=== PATIENT | female | born 1985 | race Caucasian/White ===

== ENCOUNTER → 2017-04-01 | Outpatient (CLI) | payer BC ==
[~2017-04-01] MED LIST: CYCL5TAB PO; NAPR-576 PO
== END ==
LOC: HPND 09:39
PROVIDERS: ATTEND Obstetrics & Gynecology
DX: O36.5920 Maternal care for other known or suspected poor fetal growth, second trimester, not applicable or unspecified (principal)
CPT/HCPCS: 76816

== ENCOUNTER → 2017-04-27 | Outpatient (CLI) | payer BC | LOC: HPND 09:41 | PROVIDERS: ATTEND Obstetrics & Gynecology | DX: O36.5930 Maternal care for other known or suspected poor fetal growth, third trimester, not applicable or unspecified (principal); Z3A.30 30 weeks gestation of pregnancy | CPT/HCPCS: 76816 ==

== ENCOUNTER 2017-06-26 03:06 | Inpatient (IN) | payer BC ==
[2017-06-26] VITALS (11 sets, daily range): BP systolic 94–130; BP diastolic 53–87; PULSE 70–112; RESP 17–18; TEMP 97.8–98.5; O2SAT 97–100
[~2017-06-26] VITALS: Ht 154.9 cm; Wt 59.9 kg
[2017-06-26] MEDS ORDERED: OXYTOCIN 30 UNITS-500ML PREMIX 500 ML ONE (03:20)
[2017-06-26] MEDS ORDERED: ACETAMINOPHEN 325 MG TAB PO PRN (03:45)
[2017-06-26] MEDS ORDERED: ALUMINUM/MAGNESIUM/SIMETH 30 ML CUP PO PRN (03:45)
[2017-06-26] MEDS ORDERED: SODIUM CHLORIDE 0.9% FLUSH 10 ML FLUSH IV FLUSH PRN (03:45)
[2017-06-26] MEDS ORDERED: ONDANSETRON HCL 4 MG/2 ML VIAL IV PUSH PRN (03:45)
[2017-06-26] MEDS ORDERED: OXYTOCIN 30 UNITS 500ML PREMIX IV ONE (03:45)
[2017-06-26] MEDS ORDERED: ZOLPIDEM TARTRATE 5 MG TAB PO PRN (03:45)
[2017-06-26] MEDS ORDERED: LIDOCAINE HCL 1% 50 ML VIAL I-DERMAL PRN (03:45)
[2017-06-26] MEDS ORDERED: ONDANSETRON ODT 4 MG TAB PO PRN (03:45)
[2017-06-26] MEDS ORDERED: NS 1000 ML IV PRN (03:45)
[2017-06-26] MEDS ORDERED: LIDOCAINE HCL 1% 50 ML VIAL INFIL PRN (03:45)
[2017-06-26] MEDS ORDERED: NS 500 ML BOLUS IV PRN (03:45)
[2017-06-26] MEDS ORDERED: WITCH HAZEL 50%/GLYCERIN 12.5% 40 PAD JAR TOPICAL PRN (03:45)
[2017-06-26] MEDS ORDERED: LACTATED RINGER'S 1000 ML BOLUS IV PRN (03:45)
[2017-06-26] MEDS ORDERED: CITRIC ACID-SODIUM CITRATE LIQ 30 ML UDC PO SCH (03:45)
[2017-06-26] MEDS ORDERED: OXYTOCIN 30 UNITS-500ML PREMIX 500 ML IV SCH (03:45)
[2017-06-26] MEDS ORDERED: oxyCODONE/ACETAMINOPHEN 5 MG/325 MG TAB PO PRN (03:45)
[2017-06-26] MEDS ORDERED: BENZOCAINE 20% TOPICAL SPRAY 60 ML CAN TOPICAL PRN (03:45)
[2017-06-26] MEDS ORDERED: LACTATED RINGER'S 1000 ML IV SCH (03:45)
[2017-06-26] MEDS ORDERED: MINERAL OIL 10 ML VIAL TOPICAL PRN (03:45)
[2017-06-26] MEDS ORDERED: DOCUSATE SODIUM 50 MG/SENNA 8.6 MG TAB PO PRN (03:45)
--- NOTE | 2017-06-26 03:52 | PD ---
HPI Chief Complaint ctx Travel History International Travel<30 Days: No Contact w/Intl Traveler<30Days: No Known Affected Area: No History of Present Illness HPI Patient is a 31-year-old 001, who presents with intrauterine at 39.3 weeks care was uncomplicated. The patient reports the onset of painful contractions at 7:30 PM last night. They increased in intensity and frequency during the night. The patient reports she was still able to rest however after her water broke at about 2-30 a.m., the contractions significantly increased in intensity and frequency. She reports the fluid was clear. She denies any vaginal bleeding. She reports good movement. Weeks Gestation: 39 Para: 1 : 2 History Past Medical History Medical History: Denies Significant Hx Obstetric History Obstetric History 001, full-term 1 Past Surgical History Surgical History: No Previous Surgery Family History Family History: Negative Social History Alcohol Use: No Tobacco Use: No Substance Abuse: No Allergies-Medications (Allergen,Severity, Reaction): Coded Allergies: No Known Allergies (Unverified Allergy, Unknown, 06/26/17) Home Meds Discontinued Scripts Cyclobenzaprine Hcl (Flexeril) 5 Mg Tab, 5 MG PO Q8HR Y for MUSCLE PAIN, #21 TAB Prov:Thuan Purvis MD 01/30/16 Naproxen (Naproxen) 500 Mg Tab, 500 MG PO Q12HR Y for PAIN, #30 TAB Prov:Thuan Purvis MD 01/30/16 Review of Systems Except as stated in HPI: all other systems reviewed are Neg Physical Exam Vital Signs Date Time Temp Pulse Resp B/P (MAP) Pulse Ox O2 Delivery O2 Flow Rate FiO2 06/26/17 03:43 112 124/79 (94) Narrative GENERAL: Well-nourished, well-developed patient. SKIN: Warm and dry. HEAD: Normocephalic and atraumatic. EYES: No scleral icterus. No injection or drainage. ENT: No nasal drainage noted. Mucous membranes pink. Airway patent. NECK: Supple, trachea midline. No JVD. CARDIOVASCULAR: Regular rate and rhythm without murmurs, gallops, or rubs. RESPIRATORY: Breath sounds equal bilaterally. No accessory muscle use. BREASTS: Deferred ABDOMEN/GI: Abdomen soft, non-tender, bowel sounds present, no rebound, no guarding Gravid GENITOURINARY: External Genitalia: intact and normal in appearance. Normal BUS. No vaginal or cervical masses noted. SVE was 7-8 cm dilated at the time of admission and the patient rapidly progressed to complete/complete EXTREMITIES: No cyanosis or edema. BACK: Nontender without obvious deformity. No CVA tenderness. NEUROLOGICAL: Awake and alert. Motor and sensory grossly within normal limits. Five out of 5 muscle strength in all muscle groups. Normal speech. Psychiatric: Grossly normal memory and affect Data Data Orders Orders Ob (2e) Additional Admit Info (06/26/17 03:16) Oxytocin 30 Units-500ml Premix (Pitocin (06/26/17 03:20) Lactated Ringer's 1000 Ml Inj (Lr 1000 M (06/26/17 03:45) Lactated Ringer's 1000 Ml Inj (Lr 1000 M (06/26/17 03:45) Sodium Chlorid 0.9% 500 Ml Inj (Ns 500 M (06/26/17 03:45) Sodium Chlor 0.9% 1000 Ml Inj (Ns 1000 M (06/26/17 03:45) Lidocaine 1% Inj (50 Ml) (Xylocaine 1% I (06/26/17 03:45) Citric Acid-Sodium Citrate Liq (Bicitra (06/26/17 03:45) Ondansetron Inj (Zofran Inj) (06/26/17 03:45) Fentanyl Inj (Fentanyl Inj) (06/26/17 03:45) Fentanyl Inj (Fentanyl Inj) (06/26/17 03:45) Oxytocin 30 Units-500ml Premix (Pitocin (06/26/17 03:45) Lidocaine 1% Inj (50 Ml) (Xylocaine 1% I (06/26/17 03:45) Light Mineral Oil (Muri-Lube Oil) (06/26/17 03:45) Vital Signs (Adult) .QSHIFT (06/26/17 03:45) Activity Oob Ad Maria Dolores (06/26/17 03:45) Ice / Cold Pack PRN (06/26/17 03:45) Discontinue Iv (06/26/17 03:45) Sitz Bath PRN (06/26/17 03:45) ^ Massage (06/26/17 03:45) ^ Rhogam (06/26/17 03:45) Urinary Catheter Management .PRN (06/26/17 03:45) Diet Regular Basic (06/26/17 Breakfast) Sodium Chloride 0.9% Flush (Ns Flush) (06/26/17 09:00) Sodium Chloride 0.9% Flush (Ns Flush) (06/26/17 03:45) Oxytocin 30 Units-500ml Premix (Pitocin (06/26/17 03:45) Acetaminophen (Tylenol) (06/26/17 03:45) Ibuprofen (Motrin) (06/26/17 03:45) Oxycodone-Acetamin 5-325 Mg (Percocet (06/26/17 03:45) Benzocaine 20% Top Spr (Americaine 20% T (06/26/17 03:45) Witch Franny-Glycerin Pad (Tucks Pads) (06/26/17 03:45) Docusate Sodium-Senna (Sandy-Colace) (06/26/17 03:45) Zolpidem (Ambien) (06/26/17 03:45) Zvzvyvu-Wrmae-Dhzoawe Inj (M-M-R Ii Inj) (06/26/17 16:00) Yaqu-Typ-Yywokq (Booster) Inj (Boostrix (06/26/17 16:00) Al-Mag Hy-Si 40-40-4 Mg/Ml Liq (Mag-Al P (06/26/17 03:45) Ondansetron Odt (Zofran Odt) (06/26/17 03:45) MDM Plan Assessment/plan: 1. IUP at 39 weeks 2. Active labor: Expected management 3. GBS negative 4. Dr. Cha was notified with patient went on to deliver precipitously Petty Morris MD Jun 26, 2017 03:52
--- NOTE | 2017-06-26 03:55 | PD.OB.DELI ---
Weeks gestation: 39 Gest age assessed date: Jun 26, 2017 Gest age assessed time: 03:53 Pt started active labor?: Yes Active labor start date: Jun 26, 2017 Active labor start time: 20:00 Medical induction of labor?: No Artificial rupture of membrane: No Anesthesia: None Episiotomy: None Vaginal Delivery: Normal Presentation: Occiput anterior Nuchal Cord: None Delayed cord clamping (45 sec): Yes : Male Delivery date: Jun 26, 2017 Delivery time: 03:26 One Minute : 9 Five Minute : 9 Weight: 6#10oz. Placenta: Spontaneous delivery Laceration: 1 deg (R periurethral, not bleeding, not repaired (patient declined and well approximated)) Estimated blood loss: 250 Additional Information The patient presented in active labor at 8-9/complete/-1 and proceeded to deliver precipitously. She commenced spontaneous maternal expulsive efforts and delivered the head atraumatically followed by atraumatic delivery of the anterior shoulder and remainder of the . The was vigorous at delivery and placed on the maternal abdomen. Cord clamping was delayed for 45 seconds at which point the cord was doubly clamped and cut. Cord blood was obtained for the nursery and the placenta delivered spontaneously. The placenta appeared to be intact. A small first-degree right periurethral laceration was noted. Dr. Rashid arrived and assumed care for the patient. The patient declined repair of the laceration and no bleeding was noted. EBL 250 cc. Apgars 9/9. Mother and are doing well Petty Morris MD Jun 26, 2017 03:55
[2017-06-26] MEDS: IBUPROFEN 800 MG TAB PO PRN ×3 (04:41→20:44)
[2017-06-26 05:21] LABS: BLOOD, URINE LARGE (NEG); COMMENT (UR) CULTURE INDICATED; CULTURE IF INDICATED CULTURE INDICATED; GLUCOSE,URINE NEG (NEG); KETONE, URINE NEG (NEG); NITRITE,URINE NEG (NEG); SQUAMOUS EPITHELIAL CELL URINE 1 /hpf (0-5); URINE COLOR DARK-RED (YELLW/STRAW)
[2017-06-26 05:22] LABS: AUTOMATED NEUTROPHIL # 7.3 TH/MM3 (1.8-7.7); BASOPHIL % 0.1 % (0.0-2.0); EOSINOPHIL # 0.1 TH/MM3 (0-0.4); HEMATOCRIT 30.1 % (35.0-46.0); HEMO FLAGS DIFF FINAL; LYMPH % 25.7 % (9.0-44.0); LYMPHOCYTE # 3.1 TH/MM3 (1.0-4.8); MEAN CELL VOLUME 78.5 FL (80.0-100.0); MEAN CORPUSCULAR HEMOGLOBIN 27.5 PG (27.0-34.0); MONO % 12.1 % (0.0-8.0); NEUT % 61.1 % (16.0-70.0); PLATELET COUNT 305 TH/MM3 (150-450); RED BLOOD COUNT 3.84 MIL/MM3 (4.00-5.30); RED CELL DISTRIBUTION WIDTH 14.7 % (11.6-17.2); WHITE BLOOD COUNT 11.9 TH/MM3 (4.0-11.0)
--- NOTE | 2017-06-26 05:35 | HHI.HP ---
History & Physical H&P Patient Name: Angelique Robbins Unit Number: [id number] Date of : 1985 Patient Status: Admitted Inpatient Attending Doctor: Maggy Rashid MD HPI HPI Chief Complaint ctx Travel History International Travel<30 Days: No Contact w/Intl Traveler<30Days: No Known Affected Area: No History of Present Illness HPI Patient is a 31-year-old 001, who presents with intrauterine at 39.3 weeks care was uncomplicated. The patient reports the onset of painful contractions at 7:30 PM last night. They increased in intensity and frequency during the night. The patient reports she was still able to rest however after her water broke at about 2-30 a.m., the contractions significantly increased in intensity and frequency. She reports the fluid was clear. She denies any vaginal bleeding. She reports good movement. Weeks Gestation: 39 Para: 1 : 2 History (Limited) History Past Medical History Medical History: Denies Significant Hx Obstetric History Obstetric History 001, full-term 1 Past Surgical History Surgical History: No Previous Surgery Family History Family History: Negative Social History Alcohol Use: No Tobacco Use: No Substance Abuse: No Allergies-Medications Allergies-Medications (Allergen,Severity, Reaction): Coded Allergies: No Known Allergies (Unverified Allergy, Unknown, 06/26/17) Home Meds Discontinued Scripts Cyclobenzaprine Hcl (Flexeril) 5 Mg Tab, 5 MG PO Q8HR Y for MUSCLE PAIN, #21 TAB Prov:Thuan Purvis MD 01/30/16 Naproxen (Naproxen) 500 Mg Tab, 500 MG PO Q12HR Y for PAIN, #30 TAB Prov:Thuan Purvis MD 01/30/16 ROS Review of Systems Except as stated in HPI: all other systems reviewed are Neg Physical Exam Physical Exam Vital Signs Date Time Temp Pulse Resp B/P (MAP) Pulse Ox O2 Delivery O2 Flow Rate FiO2 06/26/17 03:43 112 124/79 (94) Narrative GENERAL: Well-nourished, well-developed patient. SKIN: Warm and dry. HEAD: Normocephalic and atraumatic. EYES: No scleral icterus. No injection or drainage. ENT: No nasal drainage noted. Mucous membranes pink. Airway patent. NECK: Supple, trachea midline. No JVD. CARDIOVASCULAR: Regular rate and rhythm without murmurs, gallops, or rubs. RESPIRATORY: Breath sounds equal bilaterally. No accessory muscle use. BREASTS: Deferred ABDOMEN/GI: Abdomen soft, non-tender, bowel sounds present, no rebound, no guarding Gravid GENITOURINARY: External Genitalia: intact and normal in appearance. Normal BUS. No vaginal or cervical masses noted. SVE was 7-8 cm dilated at the time of admission and the patient rapidly progressed to complete/complete EXTREMITIES: No cyanosis or edema. BACK: Nontender without obvious deformity. No CVA tenderness. NEUROLOGICAL: Awake and alert. Motor and sensory grossly within normal limits. Five out of 5 muscle strength in all muscle groups. Normal speech. Psychiatric: Grossly normal memory and affect Data Data Data Orders Orders Ob (2e) Additional Admit Info (06/26/17 03:16) Oxytocin 30 Units-500ml Premix (Pitocin (06/26/17 03:20) Lactated Ringer's 1000 Ml Inj (Lr 1000 M (06/26/17 03:45) Lactated Ringer's 1000 Ml Inj (Lr 1000 M (06/26/17 03:45) Sodium Chlorid 0.9% 500 Ml Inj (Ns 500 M (06/26/17 03:45) Sodium Chlor 0.9% 1000 Ml Inj (Ns 1000 M (06/26/17 03:45) Lidocaine 1% Inj (50 Ml) (Xylocaine 1% I (06/26/17 03:45) Citric Acid-Sodium Citrate Liq (Bicitra (06/26/17 03:45) Ondansetron Inj (Zofran Inj) (06/26/17 03:45) Fentanyl Inj (Fentanyl Inj) (06/26/17 03:45) Fentanyl Inj (Fentanyl Inj) (06/26/17 03:45) Oxytocin 30 Units-500ml Premix (Pitocin (06/26/17 03:45) Lidocaine 1% Inj (50 Ml) (Xylocaine 1% I (06/26/17 03:45) Light Mineral Oil (Muri-Lube Oil) (06/26/17 03:45) Vital Signs (Adult) .QSHIFT (06/26/17 03:45) Activity Oob Ad Maria Dolores (06/26/17 03:45) Ice / Cold Pack PRN (06/26/17 03:45) Discontinue Iv (06/26/17 03:45) Sitz Bath PRN (06/26/17 03:45) ^ Massage (06/26/17 03:45) ^ Rhogam (06/26/17 03:45) Urinary Catheter Management .PRN (06/26/17 03:45) Diet Regular Basic (06/26/17 Breakfast) Sodium Chloride 0.9% Flush (Ns Flush) (06/26/17 09:00) Sodium Chloride 0.9% Flush (Ns Flush) (06/26/17 03:45) Oxytocin 30 Units-500ml Premix (Pitocin (06/26/17 03:45) Acetaminophen (Tylenol) (06/26/17 03:45) Ibuprofen (Motrin) (06/26/17 03:45) Oxycodone-Acetamin 5-325 Mg (Percocet (06/26/17 03:45) Benzocaine 20% Top Spr (Americaine 20% T (06/26/17 03:45) Witch Franny-Glycerin Pad (Tucks Pads) (06/26/17 03:45) Docusate Sodium-Senna (Sandy-Colace) (06/26/17 03:45) Zolpidem (Ambien) (06/26/17 03:45) Dregjtg-Mjnng-Homcpth Inj (M-M-R Ii Inj) (06/26/17 16:00) Bozh-Zxc-Bzeymg (Booster) Inj (Boostrix (06/26/17 16:00) Al-Mag Hy-Si 40-40-4 Mg/Ml Liq (Mag-Al P (06/26/17 03:45) Ondansetron Odt (Zofran Odt) (06/26/17 03:45) MDM MDM Plan Assessment/plan: 1. IUP at 39 weeks 2. Active labor: Expected management 3. GBS negative 4. Dr. Rashid was notified but patient went on to deliver precipitously Petty Morris MD Jun 26, 2017 03:52 Petty Morris MD Jun 26, 2017 05:35
[2017-06-26] MEDS ORDERED: IBUP-232 PO (07:00)
--- NOTE | 2017-06-26 07:00 | HHI.DCPOC ---
Discharge Care Plan Diagnosis: (1) Normal vaginal delivery Your Health Problems Are: Vaginal delivery Report Symptoms to Your Doctor -Temperature above 100.5 degrees -Redness, of incision or excessive or foul smelling drainage -Unusual pain or calf pain -Increased vaginal bleeding -Painful or difficulty urinating -Feelings of extreme sadness or anxiety after 2 weeks Goals to Promote Your Health * To prevent worsening of your condition and complications * To maintain your health at the optimal level Directions to Meet Your Goals Take your medications as prescribed Follow your dietary instruction Follow activity as directed Ensure plenty of rest for recovery Drink fluids for hydration Keep your appointments as scheduled Take your immunizations and boosters as scheduled If your symptoms worsen call your PCP, if no PCP go to Urgent Care Center or Emergency Room Smoking is Dangerous to Your Health. Avoid second hand smoke Call the 24-hour crisis hotline for domestic abuse at Tan Jorgensen MD Jun 26, 2017 07:00
--- NOTE | 2017-06-26 07:03 | HHI.OB ---
Subjective Post Day: 0 Remarks just delivered this AM, sleeping, says no complaints or nursing have no concerns Objective Vitals/I&O Vital Signs Date Time Temp Pulse Resp B/P (MAP) Pulse Ox O2 Delivery O2 Flow Rate FiO2 06/26/17 05:10 98.1 70 18 121/66 (84) 06/26/17 04:31 17 06/26/17 04:30 79 116/75 (89) 06/26/17 04:16 18 06/26/17 04:15 88 130/82 (98) 06/26/17 04:10 18 06/26/17 04:00 94 124/73 (90) 06/26/17 03:45 95 102/87 (92) 06/26/17 03:43 112 124/79 (94) Objective Remarks Deferred Medications and IVs Current Medications Medications (Trade) Dose Ordered Sig/Andres Route Start Time Stop Time Status Last Admin (NS Flush) 2 ml BID IV FLUSH 06/26/17 09:00 (NS Flush) 2 ml UNSCH PRN IV FLUSH 06/26/17 03:45 Oxytocin 500 ml @ 100 mls/hr CONTINUOUS IV 06/26/17 03:45 06/26/17 08:44 06/26/17 05:12 (Tylenol) 650 mg Q4H PRN PO 06/26/17 03:45 (Motrin) 800 mg Q8H PRN PO 06/26/17 03:45 06/26/17 04:41 (Percocet 5-325 Mg) 1 tab Q4H PRN PO 06/26/17 03:45 06/26/17 04:06 (Americaine 20% Top Spr) 1 spray Q4H PRN TOPICAL 06/26/17 03:45 (Tucks Pads) 1 applic QID PRN TOPICAL 06/26/17 03:45 (Sandy-Colace) 2 tab Q12H PRN PO 06/26/17 03:45 (Ambien) 5 mg HS PRN PO 06/26/17 03:45 (M-M-R Ii Inj) 0.5 ml ONCE ONCE SQ 06/26/17 16:00 06/26/17 16:01 (Boostrix Inj) 0.5 ml ONCE ONCE IM 06/26/17 16:00 06/26/17 16:01 (Mag-Al Plus Susp Liq) 15 ml Q8H PRN PO 06/26/17 03:45 (Zofran Odt) 4 mg Q6H PRN PO 06/26/17 03:45 Assessment/Plan Assessment and Plan 31 yo s/p at 39w3d on 06/26 (0330) 1. PPD #0: doing well, continue routine PP care, anticipate d/c home in next 48hrs 2. PP: Male, desires circ Tan Jorgensen MD Jun 26, 2017 07:03
[2017-06-26] MEDS ORDERED: SODIUM CHLORIDE 0.9% FLUSH 10 ML FLUSH IV FLUSH SCH (09:00)
[2017-06-26] MEDS ORDERED: DIPHTH/TETANUS/ACEL PERTUSSIS (BOOSTER) 0.5 ML VIAL/PFS IM ONE (16:00)
[2017-06-26] MEDS ORDERED: MEASLES, MUMPS, RUBELLA VACCINE 0.5 ML VIAL SQ ONE (16:00)
[2017-06-27] MEDS: IBUPROFEN 800 MG TAB PO PRN ×3 (05:26→21:27)
--- NOTE | 2017-06-27 07:22 | HHI.OB ---
Subjective Post Day: 1 Remarks Doing well, pain controlled, ambulating without difficulty, vaginal bleeding less than menses. Objective Vitals/I&O Vital Signs Date Time Temp Pulse Resp B/P (MAP) Pulse Ox O2 Delivery O2 Flow Rate FiO2 06/26/17 20:00 94 119/70 (86) 06/26/17 20:00 18 100 06/26/17 20:00 98.5 06/26/17 09:00 94/53 (67) 06/26/17 09:00 97.8 71 18 97 Objective Remarks Deferred Medications and IVs Current Medications Medications (Trade) Dose Ordered Sig/Andres Route Start Time Stop Time Status Last Admin (NS Flush) 2 ml BID IV FLUSH 06/26/17 09:00 (NS Flush) 2 ml UNSCH PRN IV FLUSH 06/26/17 03:45 (Tylenol) 650 mg Q4H PRN PO 06/26/17 03:45 (Motrin) 800 mg Q8H PRN PO 06/26/17 03:45 06/27/17 05:26 (Percocet 5-325 Mg) 1 tab Q4H PRN PO 06/26/17 03:45 06/26/17 04:06 (Americaine 20% Top Spr) 1 spray Q4H PRN TOPICAL 06/26/17 03:45 06/26/17 20:44 (Tucks Pads) 1 applic QID PRN TOPICAL 06/26/17 03:45 (Sandy-Colace) 2 tab Q12H PRN PO 06/26/17 03:45 (Ambien) 5 mg HS PRN PO 06/26/17 03:45 (Mag-Al Plus Susp Liq) 15 ml Q8H PRN PO 06/26/17 03:45 (Zofran Odt) 4 mg Q6H PRN PO 06/26/17 03:45 Assessment/Plan Assessment and Plan 31 yo s/p at 39w3d on 06/26 (0330) 1. PPD #1: doing well, meeting milestones, anticipates discharge from the next 24 hours. Discussed expectations, precautions and need for follow-up 2. PP: Male, desires and consented for circumcision, vital bleeding. Tan Jorgensen MD Jun 27, 2017 07:22
[2017-06-27 08:25] VITALS: BP 110/70; PULSE 69; RESP 20; TEMP 98; O2SAT 99
[2017-06-27 20:00] VITALS: BP 117/63; PULSE 99; RESP 20; TEMP 97.9; O2SAT 99
--- NOTE | 2017-06-28 08:41 | HHI.OB ---
Subjective Post Day: 2 Remarks doing well, ready for d/c home Objective Vitals/I&O Vital Signs Date Time Temp Pulse Resp B/P (MAP) Pulse Ox O2 Delivery O2 Flow Rate FiO2 06/27/17 20:00 97.9 99 20 117/63 (81) 99 Objective Remarks Deferred Medications and IVs Current Medications Medications (Trade) Dose Ordered Sig/Andres Route Start Time Stop Time Status Last Admin (NS Flush) 2 ml BID IV FLUSH 06/26/17 09:00 (NS Flush) 2 ml UNSCH PRN IV FLUSH 06/26/17 03:45 (Tylenol) 650 mg Q4H PRN PO 06/26/17 03:45 (Motrin) 800 mg Q8H PRN PO 06/26/17 03:45 06/27/17 21:27 (Percocet 5-325 Mg) 1 tab Q4H PRN PO 06/26/17 03:45 06/26/17 04:06 (Americaine 20% Top Spr) 1 spray Q4H PRN TOPICAL 06/26/17 03:45 06/26/17 20:44 (Tucks Pads) 1 applic QID PRN TOPICAL 06/26/17 03:45 (Sandy-Colace) 2 tab Q12H PRN PO 06/26/17 03:45 (Ambien) 5 mg HS PRN PO 06/26/17 03:45 (Mag-Al Plus Susp Liq) 15 ml Q8H PRN PO 06/26/17 03:45 (Zofran Odt) 4 mg Q6H PRN PO 06/26/17 03:45 Assessment/Plan Assessment and Plan 31 yo s/p at 39w3d on 06/26 (0330) 1. PPD #2: meeting milestones, d/c home today. 2. PP: Male s/p circ yesterday Tan Jorgensen MD Jun 28, 2017 08:41
[2017-06-28 09:00] VITALS: BP 121/62
[2017-06-28] MEDS: IBUPROFEN 800 MG TAB PO PRN (09:03)
[2017-07-01 13:24] LABS: ECSTASY (MDMA) UR NEG (NEG); HEROIN (6-ACETYLMORPHINE) UR NEG (NEG); K2 SPICE UR NEG (NEG); OBMETHADONE UR NEG (NEG); PHENCYCLIDINE URINE NEG (NEG)
[2017-07-01 13:25] LABS: BATH SALTS (MDPV) UR NEG (NEG); OBGABAPENTIN UR NEG (NEG); OBHYDROMORPHONE U NEG (NEG)
== END 2017-06-28 14:39 | disposition home or self-care (01) | DRG 775 ==
LOC: HOBED 03:06 → H2EA 03:16 → H1EA 05:26
PROVIDERS: ADMIT Obstetrics & Gynecology; ATTEND Obstetrics & Gynecology
PROC: 10E0XZZ Delivery of Products of Conception, External Approach (ICD-10-PCS; principal; 2017-06-26)
DX: O62.3 Precipitate labor (principal); O71.82 Other specified trauma to perineum and vulva; Z37.0 Single live birth; Z3A.39 39 weeks gestation of pregnancy
CPT/HCPCS: 80307; 81001; 85025; 86900; 86901; 87086; 99285; G0481; J2590